=== PATIENT | female | born 1995 | race Two or more races ===

== ENCOUNTER 2020-08-05 08:22 | Emergency (ER) | payer MEDICAID ==
[~2020-08-05] VITALS: Ht 157.5 cm; Wt 76.7 kg
[2020-08-05 08:36] VITALS: BP 122/82
[2020-08-05] MEDS ORDERED: AUGMENTIN 875-1 EAC1 ORAL (08:40)
--- NOTE | 2020-08-05 08:40 | NUR ---
pt stated that her right ear has been hurting and yesterday some blood came out of it. ERMD assessed ears, right ear drum is perforated and red
--- NOTE | 2020-08-05 08:43 | Emergency Room Report ---
History of Present Illness General Chief Complaint: Earache Source: Patient Present Illness HPI Patient is a 25-year-old female past medical history of recurrent ear infections who presents to the ER stating that she had some blood from her right ear this morning. She states that 2 days ago there was some greenish discharge from her ear and this morning she woke up with blood coming out of her right ear. She denies any trauma. She denies any headache or fevers. She denies using anything within her eardrum. Allergies: Coded Allergies: No Known Allergies (Unverified , 08/05/20) COVID-19 Screening Contact w/high risk pt: No Experienced COVID-19 symptoms?: No COVID-19 Testing performed LARD MIXER: No Patient History Now: No Reviewed Nursing Documentation: PMH: Agreed; PSxH: Agreed Nursing Documentation-PMH Past Medical History: No Stated History Review of Systems All Other Systems: negative except mentioned in HPI Physical Exam Vital Signs Date Time Temp Pulse Resp B/P (MAP) Pulse Ox O2 Delivery O2 Flow Rate FiO2 08/05/20 08:32 98.8 82 18 122/82 (95) 95 Room Air Sp02 EP Interpretation: reviewed, normal General Appearance: no apparent distress, alert, GCS 15, non-toxic Head: normocephalic, atraumatic Eyes: bilateral eye normal inspection, bilateral eye PERRL ENT: other - Left TM and canal normal right canal has scant blood 25% tympanic membrane perforation Neck: full range of motion, supple Respiratory: lungs clear, normal breath sounds, no accessory muscle use Cardiovascular #1: regular rate, rhythm Gastrointestinal: non tender, soft, no guarding, no rebound Rectal: deferred Musculoskeletal: normal range of motion Neurologic: network analyst III-XII nml as tested, oriented x3 Psychiatric: no suicidal/homicidal ideation Skin: no rash Lymphatic: no adenopathy Medical Decision Making Diagnostic Impression: Primary Impression: Ruptured tympanic membrane ER Course Patient reported green discharge from her right ear canal that I did not see. We will prophylactically start her on Augmentin to prevent any infection. After discussing risks and benefits of further diagnostics, treatment plans, as well as indications for and risks of admission, the patient is agreeable to being discharged home. I have explained that their evaluation and treatment in the emergency department today is an important step towards them achieving better health but that their evaluation today is not intended to replace further evaluation and treatment by a physician in their local clinic. I have explained that while the current findings suggest no immediate life threatening emergency they will require further evaluation and treatment by a physician of their choice in their area. They understand that it will be necessary for them to review the final reports of their ED visit with their clinic physician. We have reviewed indications for return to the Emergency Department. I have explained that additional time may need to pass and/or additional testing as an outpatient may be necessary before a definitive diagnosis can be made. They tell me they a re willing to follow up as instructed within the timeframe I recommend. They appear to understand what we discussed. Additionally they understand that if they are unable to be seen by an outpatient physician they are welcome, and in fact should, return to the Emergency Department for a repeat evaluation. The patient is stable at time of discharge. Last Vital Signs Date Time Temp Pulse Resp B/P (MAP) Pulse Ox O2 Delivery O2 Flow Rate FiO2 08/05/20 08:36 98.8 18 122/82 95 Room Air 08/05/20 08:32 82 Disposition: HOME, SELF-CARE Condition: Stable Scripts Amoxicillin/Potassium Clav 875-125* (AUGMENTIN 875-125 TABLET*) 1 Each Tablet 1 TAB ORAL TWICE A DAY, #20 TAB Prov: Agnieszka Montero M.D. 08/05/20 [facility]: [facility] Patient Instructions: Eardrum Perforation Additional Instructions: The patient was provided with discharge instructions, notified to follow-up with a primary care doctor and or specialist in the next 24-48 hours, and to return to the ED if they have worsening of their symptoms. Please note that this report is being documented using [employer] technology. This can lead to erroneous entry secondary to incorrect interpretation by the dictating instrument. Agnieszka Montero M.D. Aug 05, 2020 08:43
[2020-08-05] MEDS ORDERED: Augmentin 875mg Tab ORAL ONE (08:45)
== END 2020-08-05 08:45 | disposition home or self-care (01) ==
LOC: EMR 08:35
DX: H72.91 Unspecified perforation of tympanic membrane, right ear (principal)
CPT/HCPCS: 99282